=== PATIENT | male | born 1945 | race Caucasian/White ===

== ENCOUNTER 2018-05-31 04:43 | Inpatient (IN) | payer MEDICARE ==
[2018-05-31] VITALS (16 sets, daily range): BP systolic 95–138; BP diastolic 61–92
[~2018-05-31] VITALS: Ht 160 cm; Wt 83.5 kg
--- NOTE | 2018-05-31 01:20 | LEVENE H&P ---
DATE OF ADMISSION: May 31, 2018 IDENTIFICATION/CHIEF COMPLAINT Jhonatan is a 73-year-old gentleman with chief complaint of left knee pain. HISTORY OF PRESENT ILLNESS Patient has a longstanding history of knee arthritis, progressively painful and debilitating, refractory to conservative care. Surgery is indicated to relieve symptoms after failure of nonoperative measures. PAST MEDICAL HISTORY Notable for: 1. Hypertension. 2. Hypothyroidism. PAST SURGICAL HISTORY Notable for a back operation and a neck operation. ALLERGIES He has no known drug allergies. CURRENT MEDICATIONS 1. Liothyronine 25 mcg p.o. daily. 2. Levothyroxine 125 mcg p.o. daily. 3. Amlodipine 10 mg p.o. daily. 4. Benazepril 40 mg p.o. daily. 5. Hydrochlorothiazide 20 mg p.o. daily. 6. Fluticasone nasal spray as needed. 7. Aleve as needed. FAMILY HISTORY Noncontributory. SOCIAL HISTORY Notable for chewing tobacco, but he quit five years ago. He denies alcohol abuse, but drinks beer and wine socially. REVIEW OF SYSTEMS Negative. PHYSICAL EXAMINATION GENERAL: This is a well-developed, well-nourished male who appears stated age. HEENT: Normocephalic, atraumatic. NECK: Supple. LUNGS: Clear to auscultation bilaterally. HEART: Regular rate and rhythm. ABDOMEN: Soft. ORTHOPEDIC EXAMINATION The left knee has crepitus noted. He has an effusion present. He is stiff at end range. His stability is good. Extensor function is intact. Calves nontender. Neurovascular function intact. Skin condition is good. Radiographs demonstrate end-stage knee arthritis. ASSESSMENT Left knee end-stage degenerative joint disease, progressively painful and debilitating, refractory to conservative care. PLAN Per patient request, going to proceed with total knee arthroplasty. The nature of this procedure, risks, benefits, and the anticipated rehabilitative course were reviewed. Risks include but are not limited to , major medical or anesthetic complication, infection, neurovascular injury, blood transfusion, stiffness, scarring, fracture or tendon rupture, instability, implant loosening, migration or failure, persistent or recurrent pain, need for additional surgery and other unforeseen. He understands and wishes to proceed. A signed permit is placed in the chart. No guarantees are given or implied. [facility]OSPITALFredo
[~2018-05-31 04:43] MED LIST: ACET500T68 PO; AMLO-113 PO; BENA40TA53 PO; DOCU-416 PO; FLUT16SP19 NS; HYDR-2966 PO; LEVO-3 PO; LIO25 PO; NAPR220C12 PO; OMEG-36 PO
[2018-05-31] MEDS ORDERED: VANCOMYCIN 1 GM VIAL ONE (06:47)
[2018-05-31] MEDS ORDERED: DEXAMETHASONE SOD 4 MG/ML VIAL ONE (07:19)
[2018-05-31] MEDS ORDERED: ONDANSETRON 4 MG/2 ML VIAL ONE (07:19)
[2018-05-31] MEDS ORDERED: LIDOCAINE MPF 1% 5 ML VIAL ONE (07:19)
[2018-05-31] MEDS ORDERED: METOCLOPRAMIDE 10 MG/2 ML SDV ONE (07:19)
[2018-05-31] MEDS ORDERED: PROPOFOL EMUL(*) 10MG/ML 20 ML 20 ML ONE ×2 (07:19→08:39)
[2018-05-31] MEDS ORDERED: NORMOSOL R SOLN(*) 1000 ML BAG 1,000 ML IV PRN ×2 (08:00→10:50)
[2018-05-31] MEDS ORDERED: MIDAZOLAM 2 MG/2 ML VIAL IVP PRN (08:00)
[2018-05-31] MEDS ORDERED: LIDOCAINE/SOD BICARB 8.4% SYR ID ONE (08:00)
[2018-05-31] MEDS ORDERED: cloNIDine EPIDUR INJ 100MCG/ML 40 MCG, ROPIVACAINE 0.5% 20 ML VIAL 25 ML, EPINEPHrine H... INJ ONE (08:00)
[2018-05-31] MEDS ORDERED: FAMOTIDINE 20 MG TAB PO ONE (08:00)
[2018-05-31] MEDS ORDERED: ceFAZolin(*) 2GM/D5W 50ML 50 ML IVPB ONE (08:00)
[2018-05-31] MEDS ORDERED: TRANEXAMIC AC 1000 MG/10ML SDV 1,000 MG in DEXTROSE 5% 50 ML BAG 50 ML IV ONE (08:00)
[2018-05-31] MEDS ORDERED: ACETAMINOPHEN 500 MG TAB PO ONE (08:00)
[2018-05-31] MEDS ORDERED: CELECOXIB 200 MG CAP PO ONE (08:00)
[2018-05-31] MEDS ORDERED: PREGABALIN 75 MG CAPSULE PO ONE (08:00)
[2018-05-31] MEDS ORDERED: fentaNYL CITR 250 MCG/5 ML AMP ONE (08:04)
[2018-05-31] MEDS ORDERED: ROCURONIUM BROM 10 MG/ML 5 ML ONE (08:30)
[2018-05-31] MEDS ORDERED: NS 0.9% IRRIGATION 1000ML PLCT IR ONE (09:18)
[2018-05-31] MEDS ORDERED: LACTATED RINGER 3000 ML BAG IR ONE (09:18)
[2018-05-31] MEDS ORDERED: diphenhydrAMINE 50 MG/ML VIAL IVP PRN (10:50)
[2018-05-31] MEDS ORDERED: BISACODYL 10 MG SUPP PR PRN (10:50)
[2018-05-31] MEDS ORDERED: DIAZEPAM 5 MG TAB PO PRN (10:50)
[2018-05-31] MEDS ORDERED: BENZOCAINE/MENTHOL 1 EACH LOZG PO PRN (10:50)
[2018-05-31] MEDS ORDERED: PROMETHAZINE 25 MG/ML 1 ML AMP IVP PRN (10:50)
[2018-05-31] MEDS ORDERED: ACETAMINOPHEN 325 MG TAB PO PRN (10:50)
[2018-05-31] MEDS ORDERED: diphenhydrAMINE 25 MG CAP PO PRN (10:50)
[2018-05-31] MEDS ORDERED: FLUSH 10 ML SYR IVP PRN (10:50)
[2018-05-31] MEDS ORDERED: ZOLPIDEM TARTRATE 5 MG TAB PO PRN (10:50)
[2018-05-31] MEDS ORDERED: MAGNESIUM HYDROXIDE* 30ML UDCP PO PRN (10:50)
[2018-05-31] MEDS ORDERED: fentaNYL CITR 100 MCG/2 ML AMP ONE (11:09)
--- NOTE | 2018-05-31 11:40 | RADIOLOGY IMAGING REPORT ---
FACILITY: [facility] [place] PATIENT NAME: Jhonatan Rubin : 1945 MR: [id number] V: [id number] EXAM DATE: ORDERING PHYSICIAN: FREIDA MARTI TECHNOLOGIST: Location: [facility] [place] Patient: Jhonatan Rubin : 1945 Visit/Account:[id number] Date of Sevice: 05/31/2018 KNEE LIMITED LEFT Indication: POST L TKA Comparison: None. Findings: There are postoperative changes from a left total knee arthroplasty. The femoral, tibial, and patellar components are normal in position. Impression: Postoperative changes left total knee arthroplasty. Report Dictated By: Carter Holliday at 05/31/2018 11:35 AM Report E-Signed By: Carter Holliday at 05/31/2018 11:35 AM WSN:[email or web address]
--- NOTE | 2018-05-31 13:24 | Hospitalist Consultation ---
History of Present Illness Requesting Physician Dr. Rutherford Reason for Consult Medical Management Chief Complaint s/p left knee replacement History of Present Illness He was admitted s/p left knee replacement. It is reported the surgery went well and without complication. History Problems: (1) Hypertension Status: Chronic (2) Hypothyroidism Status: Chronic Home Meds Reported Medications Naproxen Sodium (ALEVE) 220 Mg Capsule, 220 MG PO TID, CAPSULE 05/25/18 Acetaminophen (TYLENOL EXTRA STRENGTH) 500 Mg Tablet, 500 MG PO QID, TAB 05/25/18 Docusate Sodium (COLACE) 100 Mg Capsule, 100 MG PO DAILY, CAPSULE 05/25/18 Fisher-3 Fatty Acids/Fish Oil (OMEGA 3 FISH OIL SOFTGEL) 1 Each Capsule.dr, 1 EACH PO QDAY 05/25/18 Fluticasone Prop 50 Mcg Ns (FLONASE 50 MCG NS) 16 Gm [place].susp, 2 SPRAYS NS QDAY, BOT 05/25/18 Hydrochlorothiazide (HYDROCHLOROTHIAZIDE) 25 Mg Tablet, 1 TAB PO QDAY, TAB 05/25/18 Benazepril Hcl (BENAZEPRIL HCL) 40 Mg Tablet, 40 MG PO QDAY, TAB 05/25/18 Amlodipine Besylate (AMLODIPINE BESYLATE) 10 Mg Tablet, 1 TAB PO QDAY, TAB 05/25/18 Liothyronine Sodium (LIOTHYRONINE SODIUM) 25 Mcg Tablet, 25 MCG PO DAILY 05/25/18 Levothyroxine Sodium (LEVOTHYROXINE SODIUM) 100 Mcg Tablet, 125 MCG PO QDAY, TAB 05/25/18 Allergies: Coded Allergies: No Known Drug Allergies (Unverified , 05/25/18) Hx Smoking: No Smoking Status: Never Smoker Exposure to Second Hand Smoke?: Yes When Quit Tobacco?: over ten yrs Caffeine Intake: Tea, Soda Caffeine/Cups Per Day: 2 CUPS Hx Alcohol Use: No Alcohol Used: Beer, Wine Hx Substance Use Disorder: No Social Drug Use: Never History of IV Drug Use: No Review of Systems All Systems Reviewed/Normal: Yes, Except as Noted Respiratory: Cough, Other (sputum production prior to surgery, green/yellow in color per patient) Exam Vital Signs Vital Signs Date Time Temp Pulse Resp B/P (MAP) Pulse Ox O2 Delivery O2 Flow Rate FiO2 05/31/18 13:00 83 108/79 (89) 95 Nasal Cannula 3.0 05/31/18 11:40 97.7 14 General Appearance: Alert, Awake, No Acute Distress, Afebrile Neuro: No Gross deficits Cardiovascular: Regular Rate and Rhythm Respiratory: No Respiratory Distress, Other (crackles noted to right lung sounds) GI: Abd Soft and Non-Tender Extremities: Warm, Perfused Psych: Alert & Oriented X3, Appropriate Mood & Affect Assessment and Plan Problems: (1) Status post left knee replacement Status: Acute Assessment & Plan: He will be placed on Aspirin for DVT prophylaxis. He has no history of DVT or PE. (2) COPD (chronic obstructive pulmonary disease) Status: Chronic Assessment & Plan: Chest x-ray per PCP prior to surgery revealed probable COPD. Patient reports he has cough, congestion. He will be placed on Duoneb treatments, recommended patient use IS as directed. (3) Hypertension Status: Chronic Assessment & Plan: He is on chronic treatment with Amlodipine, Benazepril, and Hydrochlorothiazide. The Amlodipine, Benazepril have been restarted with hold parameters. (4) Hypothyroidism Status: Chronic Assessment & Plan: He is on chronic treatment with Levothyroxine and Liothyroxine. Continue. Venous Thromboembolism Antithrombotics Is Pt On Any Antithrombotics?: No Exam Sepsis Risk: No Definite Risk PAWAN CAMPOS [employer] May 31, 2018 13:24
[2018-05-31] MEDS: APAP/HYDROCODONE 325/7.5 TAB PO PRN ×2 (13:30→23:45)
--- NOTE | 2018-05-31 14:14 | LEVENE TKA ---
EVENT DATE: May 31, 2018 SURGEON: Sergio Rutherford MD ANESTHESIOLOGIST: [*] ANESTHESIA: General plus adductor canal block. MANAGER PLANT: CRISTY Castañeda PREOPERATIVE DIAGNOSIS Left knee degenerative joint disease. POSTOPERATIVE DIAGNOSIS Left knee degenerative joint disease. PROCEDURE PERFORMED Left total knee arthroplasty. ESTIMATED BLOOD LOSS Minimal. DRAINS None. SPECIMENS None. COMPLICATIONS None apparent. TOURNIQUET TIME 47 minutes. IMPLANTS USED TopiVertathlon knee system with a 4 left PS femur, 5 standard tibial baseplate, 39 mm [place] symmetrical all polyethylene patella button and 13 mm PS tibial tray liner polyethylene x3. INDICATIONS The patient is 73-year-old gentleman with intractable pain and disability related to end-stage knee arthritis. Surgery is indicated to relieve symptoms after failure of nonoperative measures. DESCRIPTION OF PROCEDURE The patient was taken to the operating room and placed supine on the operating table. Adductor canal block was administered by the anesthesiologist. General anesthesia was induced. Antibiotics and TXA were administered by IV. The left lower extremity was prepped and draped in the usual sterile fashion for knee arthroplasty. A midline longitudinal incision was made and carried down through the skin and subcutaneous tissue to the extensor mechanism. A full-thickness flap was developed far enough medially to allow medial parapatellar arthrotomy to be performed. The patella was everted. The knee was brought into a flexed position. The fat pad, anterior horns of the menisci and cruciate ligaments were debrided. A subperiosteal medial release was initiated in titrated fashion and started to balance the knee. A step drill was used to enter the distal femur. A 10-inch long alignment guide was used to engage the isthmus. Distal cut set for 5 degrees of valgus over the anatomic axis. A 10 mm resection block was applied and pinned. Distal femoral cut was made with an oscillating saw. The AP sizing guide was applied to this cut and positioned for 3 degrees of external rotation over the posterior condyle. A size 4 was optimal without risk of notching. The four-in-one cutting block was applied. Anterior, posterior, posterior chamfer and anterior chamfer cuts were made respectively. A PS block was applied and centered mediolateral and the bone was removed from the box. Attention was turned to tibial preparation. The extramedullary guide was applied and positioned for varus, valgus, posterior slope and rotation. This was set to resect 9 mm resect from the intact lateral tibial plateau and a couple of millimeters to ensure an adequate cut. The block was pinned. Extramedullary alignment check cut was made with an oscillating saw. After osteophyte removal, gaps were balanced and symmetric with no additional releases required. A size 5 tibial baseplate provides optimal bony coverage without soft tissue overhang. This is inserted along with a trial liner and a trial femur. The knee was brought into extension. Patella was taken from a starting thickness of 22 to residual of 14 with patellar clamp and oscillating saw. A 39 provides optimal bony coverage without soft tissue overhang. The lug holes were drilled. The patella tracks nicely with the no-touch technique. Final tibial preparation consisted of ensuring appropriate rotational and translational position of the component. The box was reamed and the fin was punched. Surfaces were lavaged. A mix of polymethylmethacrylate was made and the components were cemented in a single stage. When the cement was fully polymerized, tourniquet was deflated. Hemostasis was assured. The 13 PS tibial tray liner fills up the gap ideally, allowing full extension without hyperextension, providing optimal soft tissue balance and stability. The tray was lavaged and dried and the liner was locked into the baseplate. The arthrotomy was closed in flexion with #2 Ethibond subcutaneous 3-0 Vicryl, the skin with surgical mynor. Xeroform was applied followed by a dry, sterile dressing and a compression wrap. The patient was awakened from the anesthesia and taken to the recovery room in stable condition, having tolerated the procedure well. Plan for standard TKA rehab protocol. DEVORAH
[2018-05-31] MEDS: ALBUTEROL/IPRATROPIUM 3 ML NEB NEB SCH ×2 (16:05→18:00)
[2018-05-31] MEDS ORDERED: NS(*) 0.9% 500 ML BAG 500 ML ONE (17:16)
[2018-05-31] MEDS: CELECOXIB 200 MG CAP PO SCH (17:23)
[2018-05-31] MEDS: ceFAZolin(*) 1 GM VIAL 1 GM in NS(*) 0.9% 100 ML ADDVANT BAG 100 ML IVPB SCH (17:23)
[2018-06-01] MEDS: ceFAZolin(*) 1 GM VIAL 1 GM in NS(*) 0.9% 100 ML ADDVANT BAG 100 ML IVPB SCH ×2 (01:08→08:17)
[2018-06-01 03:40] VITALS: BP 122/74
[2018-06-01] MEDS: APAP/HYDROCODONE 325/7.5 TAB PO PRN ×5 (03:42→22:55)
[2018-06-01] MEDS: ALBUTEROL/IPRATROPIUM 3 ML NEB NEB SCH (05:18)
[2018-06-01] MEDS: LEVOTHYROXINE SOD 0.125 MG TAB PO SCH (05:34)
[2018-06-01 07:42] VITALS: BP 125/70
[2018-06-01] MEDS: LIOTHYRONINE SODIUM 25 MCG TAB PO SCH (08:17)
[2018-06-01] MEDS: BENAZEPRIL HCL 20 MG TAB PO SCH ×2 (08:17→08:22)
[2018-06-01] MEDS: FLUTICASONE PROP 0.05% 16 GM SCH (08:17)
[2018-06-01] MEDS: amLODIPine BESYL(*) 5 MG TAB PO SCH ×2 (08:17→08:23)
[2018-06-01] MEDS: CELECOXIB 200 MG CAP PO SCH ×2 (08:17→17:41)
[2018-06-01] MEDS: ASPIRIN 325 MG TAB PO SCH (08:17)
[2018-06-01] MEDS ORDERED: ALBUTEROL/IPRATROPIUM 3 ML NEB NEB PRN (10:05)
--- NOTE | 2018-06-01 10:10 | Hospitalist Progress Note ---
Subjective Progress Notes Subjective He has no complaints this morning. He had no acute events overnight. Patient Complains of: Cardiovascular: No: Chest Pain Respiratory: No: Shortness of Breath Physical Exam Vital Signs Date Time Temp Pulse Resp B/P (MAP) Pulse Ox O2 Delivery O2 Flow Rate FiO2 06/01/18 08:19 87 06/01/18 08:19 Nasal Cannula 1.0 06/01/18 07:42 97.6 73 16 125/70 (88) Intake and Output 06/01/18 06:59 Intake Total 3340 ml Balance 3340 ml Intake Oral 1340 ml IV Total 2000 ml # Voids 5 General Appearance: Alert, Awake, No Acute Distress, Afebrile Neuro: No Gross deficits Cardiovascular: Regular Rate and Rhythm Respiratory: No Respiratory Distress, Clear to Auscultation GI: Soft and Non-Tender Psych: Alert & Oriented X3, Appropriate Mood & Affect Assessment and Plan Problems: (1) Status post left knee replacement Status: Acute Assessment & Plan: He will be placed on Aspirin for DVT prophylaxis. He has no history of DVT or PE. (2) COPD (chronic obstructive pulmonary disease) Status: Chronic Assessment & Plan: Chest x-ray per PCP prior to surgery revealed probable COPD. Patient reports he has cough, congestion post-op, which has improved overnight. He will be placed on Duoneb treatments, recommended patient use IS as directed. (3) Hypertension Status: Chronic Assessment & Plan: He is on chronic treatment with Amlodipine, Benazepril, and Hydrochlorothiazide. The Amlodipine, Benazepril have been restarted with hold parameters. (4) Hypothyroidism Status: Chronic Assessment & Plan: He is on chronic treatment with Levothyroxine and Liothyroxine. Continue. Exam Sepsis Risk: No Definite Risk PAWAN CAMPOS [employer] Jun 01, 2018 10:10
[2018-06-01] MEDS: DOCUSATE SODIUM 100 MG CAP PO SCH ×2 (10:51→21:09)
[2018-06-01 10:53] VITALS: BP 128/83
[2018-06-01 15:03] VITALS: BP 123/73
[2018-06-01 15:26] VITALS: Ht 160 cm; Wt 83.5 kg
[2018-06-01 19:31] VITALS: BP 129/81
[2018-06-01 23:00] VITALS: BP 114/89
[2018-06-02] MEDS: LEVOTHYROXINE SOD 0.125 MG TAB PO SCH (05:52)
--- NOTE | 2018-06-02 06:42 | Hospitalist Progress Note ---
Subjective Progress Notes Subjective He denies any current complaints. "I am tired of being in bed". Physical Exam Vital Signs Date Time Temp Pulse Resp B/P (MAP) Pulse Ox O2 Delivery O2 Flow Rate FiO2 06/02/18 02:15 82 06/01/18 23:00 97.4 74 16 114/89 (97) Nasal Cannula 1.0 Intake and Output 06/02/18 07:00 Intake Total 2200 ml Balance 2200 ml Intake Oral 2200 ml # Voids 8 General Appearance: Alert, Awake Cardiovascular: Regular Rate and Rhythm Respiratory: Clear to Auscultation Assessment and Plan Problems: (1) Status post left knee replacement Status: Acute Assessment & Plan: He is on Aspirin for DVT prophylaxis. He has no history of DVT or PE. (2) COPD (chronic obstructive pulmonary disease) Status: Chronic Assessment & Plan: Chest x-ray per PCP prior to surgery revealed probable COPD. He has had some mild hypoxia post-op. (3) Hypertension Status: Chronic Assessment & Plan: Stable post-op. He is on chronic treatment with Amlodipine, Benazepril, and Hydrochlorothiazide. (4) Hypothyroidism Status: Chronic Assessment & Plan: He is on chronic treatment with Levothyroxine and Liothyronine. Exam Sepsis Risk: No Definite Risk THIEN PABON MD Jun 02, 2018 06:42
[2018-06-02] MEDS ORDERED: ASPI-757 PO (06:44)
[2018-06-02 06:49] VITALS: BP 132/83
[2018-06-02] MEDS: DOCUSATE SODIUM 100 MG CAP PO SCH (08:16)
[2018-06-02] MEDS: amLODIPine BESYL(*) 5 MG TAB PO SCH (08:16)
[2018-06-02] MEDS: CELECOXIB 200 MG CAP PO SCH (08:16)
[2018-06-02] MEDS: BENAZEPRIL HCL 20 MG TAB PO SCH (08:16)
[2018-06-02] MEDS: ASPIRIN 325 MG TAB PO SCH (08:16)
[2018-06-02] MEDS: APAP/HYDROCODONE 325/7.5 TAB PO PRN (08:17)
[2018-06-02] MEDS: LIOTHYRONINE SODIUM 25 MCG TAB PO SCH (08:17)
[2018-06-02] MEDS: FLUTICASONE PROP 0.05% 16 GM SCH (08:17)
[2018-06-02] MEDS ORDERED: HYDR-654 PO (08:34)
== END 2018-06-02 09:55 | disposition home or self-care (01) | DRG 470 ==
LOC: OR 04:43 → MED 11:40
PROVIDERS: ADMIT Orthopaedic Surgery; ATTEND Orthopaedic Surgery
PROC: 0SRD0J9 Replacement of Left Knee Joint with Synthetic Substitute, Cemented, Open Approach (ICD-10-PCS; principal; 2018-05-31 08:27)
DX: M17.12 Unilateral primary osteoarthritis, left knee (principal); I10 Essential (primary) hypertension; M25.762 Osteophyte, left knee; J44.9 Chronic obstructive pulmonary disease, unspecified; E03.9 Hypothyroidism, unspecified; Z87.891 Personal history of nicotine dependence
CPT/HCPCS: 36415; 76942; 85610; 86850; 86900; 86901; 94640; 97161; C1713; C1776; J0171; J0690; J0735; J1100; J1885; J2001; J2250; J2405; J2704; J2765; J2795; J3010; J3370; J7050; J7060